=== PATIENT | female | born 1980 | race Two or more races ===

== ENCOUNTER 2016-07-22 21:33 | Emergency (ER) | payer OTHER ==
[~2016-07-22] VITALS: Ht 162.6 cm; Wt 59.0 kg
[2016-07-22 21:40] VITALS: BP 120/76
--- NOTE | 2016-07-22 22:22 | Emergency Room Report ---
History of Present Illness General Chief Complaint: Syncope Source: Patient, EMS Present Illness HPI Patient present with complaints of syncopal episode Essentially the patient was at dinner while seated She began feeling hot and flushed Patient was standing up to go outside to get some fresh air when she became more lightheaded near syncopal And the patient's reports patient sustained a full syncopal episode for a few seconds And did well after being outside Patient denies any abdominal pain denies any vomiting she feels that she has been constipated recently and has been taking fiber She had a mucus-type bowel movements earlier with some mild diarrhea Denies any dysuria frequency denies any chest pain or shortness of breath she is a Allergies: Coded Allergies: PENICILLINS (Verified Allergy, Unknown, 07/22/16) Uncoded Allergies: PENICILLIN (Allergy, Unknown, 07/22/16) Patient History Past Medical History: see triage record Pertinent Family History: none Last Menstrual Period: 16 week Now: Yes Reviewed Nursing Documentation: PMH: Agreed, PSxH: Agreed Nursing Documentation-PMH Past Medical History: No Stated History Review of Systems All Other Systems: negative except mentioned in HPI Physical Exam Vital Signs Date Time Temp Pulse Resp B/P Pulse Ox O2 Delivery O2 Flow Rate FiO2 07/22/16 21:31 97.0 88 14 120/76 100 Room Air Sp02 EP Interpretation: reviewed, normal General Appearance: well appearing, no apparent distress Head: normocephalic, atraumatic Eyes: bilateral eye EOMI, bilateral eye PERRL ENT: hearing grossly normal, normal pharynx, TMs + canals normal, uvula midline Neck: full range of motion, supple, no meningismus, no bony tend Respiratory: lungs clear, normal breath sounds, no rhonchi, no respiratory distress, no retraction, no accessory muscle use Cardiovascular #1: normal peripheral pulses, regular rate, rhythm, no edema, no gallop, no JVD, no murmur Gastrointestinal: normal bowel sounds, non tender - Fairly early , I cannot palpate any obvious gravid abdomen, soft, no mass, no organomegaly, non- distended, no guarding, no hernia, no pulsatile mass, no rebound Genitourinary: no CVA tenderness Musculoskeletal: normal inspection Neurologic: oriented x3, responsive, 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, motor strength/ tone normal, sensory intact Psychiatric: mood/affect normal Skin: normal color, no rash, warm/dry, palpation normal Lymphatic: normal inspection, no adenopathy Medical Decision Making Diagnostic Impression: Primary Impression: Syncope ER Course Patient is a fairly complex patient with multiple differential to consideration including but not limited to cardiac cardiopulmonary and vascular emergencies Patient's EKG was normal baseline blood work is also appropriate Patient was further hydrated Given the 5-10 white blood cells given the patient's status she was also given a prescription for Macrobid Patient however will followup closely with her primary physician prior to initiating antibiotics which I feel is appropriate also pending culturing at this time Otherwise patient remains hemodynamically stable has been awake and alert and have close outpatient followup Ultrasound pelvic showed appropriate heart tones, no obvious subchorionic hemorrhage, Labs Test 07/22/16 22:15 07/22/16 23:00 07/23/16 00:00 White Blood Count 10.1 K/UL (4.8-10.8) Red Blood Count 3.60 M/UL (4.20-5.40) Hemoglobin 11.3 G/DL (12.0-16.0) Hematocrit 33.5 % (37.0-47.0) Mean Corpuscular Volume 93 FL (80-99) Mean Corpuscular Hemoglobin 31.4 PG (27.0-31.0) Mean Corpuscular Hemoglobin Concent 33.7 G/DL (32.0-36.0) Red Cell Distribution Width 12.1 % (11.6-14.8) Platelet Count 224 K/UL (150-450) Mean Platelet Volume 6.5 FL (6.5-10.1) Neutrophils (%) (Auto) 75.0 % (45.0-75.0) Lymphocytes (%) (Auto) 19.5 % (20.0-45.0) Monocytes (%) (Auto) 4.3 % (1.0-10.0) Eosinophils (%) (Auto) 0.8 % (0.0-3.0) Basophils (%) (Auto) 0.4 % (0.0-2.0) Urine Color Pale yellow Urine Appearance Clear Urine pH 6 (4.5-8.0) Urine Specific [place] 1.015 (1.005-1.035) Urine Protein Negative (NEGATIVE) Urine Glucose (UA) Negative (NEGATIVE) Urine Ketones Negative (NEGATIVE) Urine Occult Blood Negative (NEGATIVE) Urine Nitrite Negative (NEGATIVE) Urine Bilirubin Negative (NEGATIVE) Urine Urobilinogen Normal MG/DL (0.0-1.0) Urine Leukocyte Esterase 1+ (NEGATIVE) Urine RBC 0-2 /HPF (0 - 2) Urine WBC 5-10 /HPF (0 - 2) Urine Squamous Epithelial Cells Few /LPF (NONE/OCC) Urine Bacteria Few /HPF (NONE) Sodium Level 139 mEQ/L (135-145) Potassium Level 3.4 mEQ/L (3.4-4.9) Chloride Level 102 mEQ/L (98-107) Carbon Dioxide Level 22 mEQ/L (20-30) Anion Gap 15 (5-15) Blood Urea Nitrogen 8 mg/dL (7-23) Creatinine 0.6 mg/dL (0.5-0.9) Estimat Glomerular Filtration Rate > 60 mL/min (>60) Glucose Level 91 mg/dL (74-106) Calcium Level 9.4 mg/dL (8.6-10.2) EKG Diagnostic Results Rate: normal Rhythm: NSR ST Segments: no acute changes Rhythm Strip Diag. Results EP Interpretation: yes Rate: 77 Rhythm: NSR, no PVC's, no ectopy CT/MRI/US Diagnostic Results CT/MRI/US Diagnostic Results : Impression Pelvic ultrasound: Intrauterine seen, appropriate her heart tones refer to the note for full specifics Last Vital Signs Date Time Temp Pulse Resp B/P Pulse Ox O2 Delivery O2 Flow Rate FiO2 07/22/16 21:31 97.0 88 14 120/76 100 Room Air Status: improved Disposition: HOME, SELF-CARE Condition: Improved Scripts Nitrofurantoin Monohyd/M-Cryst* (MACROBID 100 MG*) 100 Mg Capsule 100 MG ORAL EVERY 12 HOURS for 5 Days, CAP Prov: LUCERO CHASE D.O. 07/23/16 Additional Instructions: Patient is provided with the discharge instructions notified to follow up with primary doctor in the next 2-3 days otherwise return to the er with any worsening symptoms. LUCERO CHASE D.O. Jul 22, 2016 22:21
[2016-07-22 23:27] LABS: BASOPHILS % (AUTO) 0.4 % (0.0-2.0); EOSINOPHILS % (AUTO) 0.8 % (0.0-3.0); LYMPHOCYTES % (AUTO) 19.5 % (20.0-45.0); MEAN CORPUSCULAR HEMOGLOBIN 31.4 PG (27.0-31.0); MEAN CORPUSCULAR HGB CONC 33.7 G/DL (32.0-36.0); MEAN CORPUSCULAR VOLUME 93 FL (80-99); MEAN PLATELET VOLUME 6.5 FL (6.5-10.1); MONOCYTES % (AUTO) 4.3 % (1.0-10.0); PLATELET COUNT 224 K/UL (150-450); RED CELL DISTRIBUTION WIDTH 12.1 % (11.6-14.8); WHITE BLOOD COUNT 10.1 K/UL (4.8-10.8)
[2016-07-22 23:30] VITALS: BP 112/48
[2016-07-22 23:32] LABS: APPEARANCE,URINE CLEAR; KETONES,URINE NEGATIVE (NEGATIVE); LEUKOCYTE ESTERASE ,URINE 1+ (NEGATIVE); NITRITE,URINE NEGATIVE (NEGATIVE); PH,URINE 6 (4.5-8.0); PROTEIN,URINE NEGATIVE (NEGATIVE); UROBILINOGEN,URINE NORMAL MG/DL (0.0-1.0)
[2016-07-22 23:49] LABS: BACTERIA,URINE FEW /HPF; RBC,URINE 0-2 /HPF (0 - 2); SQUAMOUS EPITHELIAL CELL,UR FEW /LPF (NONE/OCC)
[2016-07-23] MEDS ORDERED: NITROFURANTOIN100 M2 ORAL (00:05)
[2016-07-23 00:23] VITALS: BP 112/48
[2016-07-23 00:43] LABS: ANION GAP 15 (5-15); CALCIUM 9.4 mg/dL (8.6-10.2); CARBON DIOXIDE 22 mEQ/L (20-30); CHLORIDE 102 mEQ/L (98-107); CREATININE 0.6 mg/dL (0.5-0.9); GLOMERULAR FILTRATION RATE > 60 mL/min (>60); HEMOLYSIS 2; POTASSIUM 3.4 mEQ/L (3.4-4.9); SODIUM 139 mEQ/L (135-145)
--- NOTE | 2016-07-23 10:39 | Diagnostic Imaging Report ---
Indications: Intrauterine , syncope, pelvic pain, LMP unknown Technique: Transabdominal real-time grayscale and duplex Doppler imaging of intrauterine was performed. Findings: Comparison: None. Single live intrauterine fetus is present, longitudinal in lie and breech in presentation. Spontaneous movement and regular cardiac activity are demonstrated, 137 beats per minute. The placenta is anterior in location, grade one in maturity, and demonstrates an no intrinsic abnormalities. No evidence of previa or abruption. Amniotic fluid volume appears within normal limits. Amniotic fluid index not measured. The cervix is long and closed.18 mm circumscribed hypoechoic focus in the subserosal aspect of anterior lower uterine segment myometrium. Evaluation of anatomy limited. cerebellum, cisterna magna, lateral ventricles, spine, 4 chamber heart, stomach, kidneys, urinary bladder, abdominal cord insertion site, and 3 vessel umbilical cord are visualized without obvious abnormality. Four limbs are identified. Thoraco- abdominal situs is normal. No abnormalities are seen. Mean biparietal diameter 17 weeks zero days. Mean head circumference 17 weeks zero days. Mean abdominal circumference 17 weeks zero days. Mean femur length 17 weeks zero days. The growth proportionality ratios are within normal limits. Estimated weight is 178+ or -26 grams. Composite estimated gestational age by sonographic measurements is 17 weeks zero days +/- 1 standard deviation, estimated date of delivery 12/30/16. IMPRESSION: Single live intrauterine , estimated gestational age 17 weeks zero days by ultrasound Breech presentation. No obvious abnormality identified. Evaluation of anatomy is somewhat limited, however. Recommend followup comprehensive anatomic survey. Small lower uterine segment mass probably fibroid
--- NOTE | 2016-07-23 17:41 | Cardiology Report ---
APPROVED REPORT EKG Measurement Heart [id number] Normal sinus rhythm Normal ECG
== END 2016-07-23 00:23 | disposition home or self-care (01) ==
LOC: EDBD 21:33 → EMR 22:25
DX: O26.892 Other specified pregnancy related conditions, second trimester (principal); R55 Syncope and collapse; Z3A.16 16 weeks gestation of pregnancy; Z88.0 Allergy status to penicillin
CPT/HCPCS: 36415; 76805; 80048; 81003; 85025; 93005; 96360